=== PATIENT | female | born 2005 | race Caucasian/White ===

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

== ENCOUNTER 2024-09-15 08:02 | Emergency (ER) | payer BC ==
[~2024-09-15] VITALS: Ht 167.6 cm; Wt 116.3 kg
[~2024-09-15 08:02] MED LIST changes: +CLINDAMYCIN HC150 MG PO; +DOXYCYCLINE HY100 MG PO
--- OUTSIDE RECORDS SUMMARY | 2024-09-15 08:12 | XMS ---
PreManage Notification: MONA BARRETO Security Retreader Events No recent Security Events currently on file CRITERIA MET - [facility] - 2 Visits in 30 Days CARE PROVIDERS There are no care providers on record at this time. Liz has no Care Guidelines for this patient. Carla V[facility] COUNT (12 MO.) [facility] NOTE: Visits indicate total known visits. ED/C VISIT TRACKING (12 MO.) [facility] [place] [facility] COMPLAINT: - RT FOOT PAIN 09/08/2024 07:37 [place] TYPE: Emergency COMPLAINT: - FOOT INFECTION DIAGNOSES: - Corns and callosities - Pain in right foot INPATIENT VISIT TRACKING (12 MO.) No inpatient visits to display in this time frame [id number]
[2024-09-15 08:40] VITALS: BP 164/89
== END 2024-09-15 08:36 | disposition home or self-care (01) ==
LOC: ED 08:02
DX: L03.115 Cellulitis of right lower limb (principal); R62.50 Unspecified lack of expected normal physiological development in childhood; Z79.2 Long term (current) use of antibiotics
CPT/HCPCS: 99282